=== PATIENT | female | born 1955 | race Caucasian/White ===

== ENCOUNTER 2021-02-06 06:31 | Day surgery (SDC) | payer BC, SELFPAY ==
[2021-01-30 14:53] VITALS: BMI 32.2
--- NOTE | 2021-02-05 13:17 | HO.ANESPROP2 ---
Documented by User: Lenore Davalos NP 02/05/21 13:21 HPI - Anesthesia Eval Consult details Narrative: 65yo F for Upper Endoscopy PMFSH Past Medical History Medical History Asthma COVID-19 vaccine series completed GERD (gastroesophageal reflux disease) Hepatitis B History of Love's esophagus Surgical History Surgical History H/O colonoscopy History of colposcopy History of esophagogastroduodenoscopy (EGD) Hx of breast surgery Social History Social History Are you a primary child care team lead to a significant other at home: No Do you presently have visiting nurse or other home services: No Patient Tobacco Use Status: Never used Tobacco Use of substances other than those prescribed or required for medical reasons: No Have you been hit, kicked, punched, or otherwise hurt by someone within the past year? If so, by whom?: No Are you DNR?: No Advance Directives: No Advance Directives Information Provided: Yes (informational brochure mailed) Advance Directives on File: No Recently lost weight without trying: No Nutrition Risks: No Nutritional Risk Poor oral hygiene: No (3 permanent bridges-back teeth) Meds Allergies Allergy/AdvReac Type Severity Reaction Status Date / Time No Known Allergies Allergy Verified 01/30/21 14:18 Home Medications Medication Instructions Recorded Confirmed Last Taken Type beclomethasone dipropionate 40 1 inh INHALATION BID 01/30/21 01/30/21 02/06/21 History mcg/actuation HFA breath activated aerosol (Qvar RediHaler) fexofenadine 180 mg tablet 180 mg PO DAILY 01/30/21 01/30/21 Unknown History (Tosin Allergy) Exam Exam Date and Time: February 05, 2021 1317 Height,Weight and Vital Signs: Height 5 ft Weight 74.843 kg Assessment and Plan Assessment Anesthesia Assessment: Chart Reviewed Documented by User: Karina Flores MD 02/06/21 07:35 FORMERLY [facility], [facility] Past Medical History Medical History Asthma COVID-19 vaccine series completed GERD (gastroesophageal reflux disease) Hepatitis B History of Love's esophagus Surgical History Surgical History H/O colonoscopy History of colposcopy History of esophagogastroduodenoscopy (EGD) Hx of breast surgery History of Problems with Anesthesia: No Social History Social History Are you a primary child care team lead to a significant other at home: No Do you presently have visiting nurse or other home services: No Patient Tobacco Use Status: Never used Tobacco Use of substances other than those prescribed or required for medical reasons: No Have you been hit, kicked, punched, or otherwise hurt by someone within the past year? If so, by whom?: No Are you DNR?: No Advance Directives: No Advance Directives Information Provided: Yes (informational brochure mailed) Advance Directives on File: No Recently lost weight without trying: No Nutrition Risks: No Nutritional Risk Poor oral hygiene: No (3 permanent bridges-back teeth) Meds Allergies Allergy/AdvReac Type Severity Reaction Status Date / Time No Known Allergies Allergy Verified 01/30/21 14:18 Home Medications Medication Instructions Recorded Confirmed Last Taken Type beclomethasone dipropionate 40 1 inh INHALATION BID 01/30/21 01/30/21 02/06/21 History mcg/actuation HFA breath activated aerosol (Qvar RediHaler) fexofenadine 180 mg tablet 180 mg PO DAILY 01/30/21 01/30/21 Unknown History (Tosin Allergy) Exam Airway Mallampati Class: III (Small mouth, crowded teeth) TM Dist: >3cm Neck ROM: Full Heart: RRR Lungs: CTA Assessment and Plan Assessment Anesthesia Assessment: Anesthesia Plan Discussed Final Anesthetic Review History of Problems with Anesthesia: No NPO: Yes ASA Class: II Final Preanesthetic Review: Meds/Allgs Chart Reviewed, Consent Obtained/Reviewed and Anes Risks/Benef Reviewed Patient Risk: Low Procedure Risk: Intermediate Anesthetic Plan Anesthetic Plan: MAC: Disposition: Standard PACU
[2021-02-06 06:56] VITALS: BP 128/50; PULSE 91; RESP 16; TEMP 36.7; O2SAT 95
[2021-02-06] MEDS: Lactated Ringers 1,000 ML 100 ML IVCONT (07:01)
[2021-02-06 08:04] VITALS: BP 119/52; PULSE 77; RESP 16; TEMP 36.1; O2SAT 95
--- NOTE | 2021-02-06 08:08 | P.BOP_ITS ---
Brief Operative Note Date of Service: 02/06/21 Pre-op diagnosis: GERD, Love's Post-op diagnosis: other (Hiatal hernia) Procedure: EGD with biopsies Surgeon: Lior Joseph Anesthesia: MAC Was an Sales Development Consultant used for this Procedure?: No Estimated blood loss (mL): 2.0 Pathology: other (A. EG Junction at 33cm) Condition: stable Disposition: PACU
[2021-02-06 08:19] VITALS: BP 112/52; PULSE 73; RESP 16; TEMP 36.1; O2SAT 94
[2021-02-06 08:31] VITALS: BP 126/57; PULSE 65; RESP 16; O2SAT 93
--- NOTE | 2021-02-06 09:57 | OP_ITS ---
SURGEON: Lior Joseph MD INDICATIONS: The patient presents for evaluation of gastroesophageal reflux and history of Love's esophagus. Full consent has been obtained from her for this, including risks of bleeding and perforation. PREOPERATIVE DIAGNOSIS: POSTOPERATIVE DIAGNOSIS: PROCEDURE PERFORMED: Esophagogastroduodenoscopy with biopsy. ESTIMATED BLOOD LOSS: COMPLICATIONS: ANESTHESIA: Monitored anesthesia care. ASSISTANTS: SPECIMENS: PREOPERATIVE DIAGNOSES: Gastroesophageal reflux and history of Love's esophagus. POSTOPERATIVE DIAGNOSES: Gastroesophageal reflux and history of Love's esophagus, hiatal hernia. DESCRIPTION OF PROCEDURE: The patient was placed in the left lateral decubitus position. The Olympus video gastroscope was passed in the posterior oropharynx and upper esophagus under direct vision. The scope was passed slowly into the distal esophagus. The gastroesophageal junction appeared at 33 cm. There was some very slight irregularity at this level, but without any sign of inflammation, ulceration, nor mass. The scope entered into the stomach. There was a small hiatal hernia. The scope was advanced to the pylorus and the duodenum was cannulated to the descending portion. The duodenum including the bulb appeared normal without mass or ulceration. Scope was withdrawn back in the stomach. The gastric antrum and body appeared normal with good peristalsis. The scope was retroflexed visualizing the proximal stomach carefully, which appeared normal, without any sign of mass or ulceration. The scope was straightened and withdrawn back into the esophagus. Biopsies were obtained at the EG junction. Proximal to this, the esophageal mucosa appeared normal. Scope was straightened out and withdrawn from the patient. She tolerated the procedure well and was returned to the recovery area in stable condition. IMPRESSION: Hiatal hernia, gastroesophageal reflux, history of Love's esophagus. PLAN: The results of the biopsy will be checked. I would recommend a repeat upper endoscopy in 3 years for further surveillance, at which time, she can have a followup colonoscopy given her negative exam in 2013 and a negative colonoscopy prior to that. She has no family history of colorectal cancer. At this point, she is asymptomatic in regard to her history of reflux and will therefore not require any chronic acid suppression. She will see me in the interim on a p.r.n. basis. MD ALIX Bui/MARY / [id number]
== END 2021-02-06 08:57 | disposition home or self-care (01) ==
PROVIDERS: PCP Family Medicine; Visit Provider Internal Medicine
PROC: 0DJ08ZZ Inspection of Upper Intestinal Tract, Via Natural or Artificial Opening Endoscopic (ICD-10-PCS; CPT 43235; principal; 2021-02-06 07:30)
DX: K22.70 Barrett's esophagus without dysplasia (principal); K21.9 Gastro-esophageal reflux disease without esophagitis; K44.9 Diaphragmatic hernia without obstruction or gangrene; J45.909 Unspecified asthma, uncomplicated; B19.10 Unspecified viral hepatitis B without hepatic coma; Z79.51 Long term (current) use of inhaled steroids
CPT/HCPCS: 43239; 88305; J3010

== ENCOUNTER → 2022-09-10 13:54 | Outpatient (REF) | payer MEDICARE, BC, SELFPAY ==
--- NOTE | 2022-09-10 14:03 | CA_ITS ---
Transthoracic Echocardiogram Patient (Last, First, Middle): Carla Stokes, Gender: Female Date of : 1955 Age: 67 Procedure Date: 09/10/2022 Procedure Type: Transthoracic Echocardiogram Location: [facility] Height: 152.4 cm Weight: 72.58 kg BSA: 1.70 m2 Heart Rate: 65 bpm BP: 128 / 62 mmHg Occ Med Physician: JEAN CLAUDE Referring MD: Fouzia Coley AGRICULTURE TECHNICIAN Certified Pharmacist Assistant: Bulmaro Dunbar MD Symptoms: CARDIAC MURMUR,UNSPECIFIED Study Quality: Adequate ECG Rhythm: Sinus Conclusions: - 1. Normal LV systolic function with LVEF of 60-65% with normal filling pattern 2. Bicuspid aortic valve with moderate thickening with moderate to severe aortic stenosis with mean gradient of 31 mmHg 3. Moderately dilated ascending aorta at 4.5 cm 4. Normal RV systolic pressure 5. No gross pericardial effusion Findings Left Ventricle Normal left ventricular size, thickness, and systolic function. The visually estimated ejection fraction is between 60-65%. Spectral Doppler is indicative of a normal filling pattern. Peak GLS is -18%, within normal limits. Right Ventricle Normal right ventricular cavity size and systolic function. Atria The left atrium is normal in size. Interatrial shunt cannot be excluded. The right atrium is normal in size. Aortic Valve There is a bicuspid aortic valve. There is moderate calcification of the aortic valve. There is moderate thickening of the aortic valve. There is moderately restricted aortic valve cusp separation. There is moderate to severe aortic valve stenosis. The mean gradient is 31 mmHg. The aortic valve area is 1.10 cm2. Dimensionless index is measured at 0.31, more suggestive of moderate aortic stenosis Mitral Valve Normal mitral valve structure and function. There is trace mitral valve regurgitation. There is no mitral valve stenosis. Pulmonic Valve The pulmonic valve is likely normal. Tricuspid Valve Normal tricuspid valve structure. There is trace tricuspid valve regurgitation. The right ventricular systolic pressure is normal. The right ventricular systolic pressure is 23 mmHg. Normal right atrial pressure. There is no evidence of pulmonary hypertension. Great Vessels The pulmonary artery was not well visualized. There is moderate dilatation of the ascending aorta measuring 4.50 cm. Venous The inferior vena cava is normal in size and collapses greater than 50% with inspiration. Pericardium/Pleural There is no evidence of pericardial effusion. Prior Study Comparison No prior study available for comparison. Measurements 2D Linear Measurements IVSd: 0.80 0.6-0.9/0.6-1.0 cm LVIDd: 4.80 3.9-5.3/4.2-5.9 cm LVIDd Index: 2.82 2.4-3.2/2.2-3.1 cm/m2 LVIDs: 3.01 2.0-3.6 cm LVPWd: 0.84 0.7-1.1 cm LA Diam: 3.40 2.7-3.8/3.0-4.0 cm LAIDs Index: 2.00 1.5-2.3 cm/m2 LV Mass: 163.15 67-162/88-224 g LV Mass Index: 95.97 43-95/49-115 g/m2 LVOT Diam: 2.00 3.0+(-)1.3 cm 2D Systolic Function EF 4C: 68.00 >55% EF 2C: 64.30 >55% EF BiP: 65.70 >55% Mitral Valve MV Pk E: 0.86 MV PK A: 0.78 MV Decel Time: 177.00 E/A: 1.10 E'Lateral: 5.66 E'Medial: 6.85 E/E' Med: 12.50 E/E' Lat: 15.10 PHT: 52.00 MVA PHT: 4.23 Decel Cross: 4.84 Aortic Valve AoV Pk Rafael: 3.58 AoV Mn Rafael: 2.65 AoV VTI: 0.86 AoV Pk Grad: 51.00 Aov Mn Grad: 31.00 ELIEZER Cont.VTI: 1.10 LVOT LVOT Pk Rafael: 0.94 LVOT Mn Rafael: 0.71 LVOT VTI: 0.24 LVOT Pk Grad: 3.00 LVOT Mn Grad: 3.00 LVOT Diam: 2.00 LVOT Area: 3.14 Diastolic Function MV Pk E: 0.86 MV Pk A: 0.78 E/A: 1.10 E'Medial: 6.85 E/E' Med: 12.50 E' Laterial: 5.66 E/E' Lat: 15.10 Right Ventricle TAPSE (mm): 21.20 TVS' Rafael: 10.40 Tricuspid Valve TR Pk Rafael: 2.24 TR Pk Grad: 20.00 RA Press: 3.00 RVSP: 23.00 Great Vessels Aorta Sinus of Valsalva: 3.00 2.0-3.5 cm Ao Asc: 4.50 2.1-3.4 cm Ao Arch: 3.50 Pulmonary Valve PV Pk Rafael: 0.94 Peak PV Grad: 4.00 Updated in Other Vendor System with Status of Final Bulmaro Dunbar MD electronically signed on 09/10/2022 3:50:37 PM with status of Final
== END ==
LOC: HO.CARD 13:54
PROVIDERS: PCP Nurse Practitioner Primary Care; Visit Provider Nurse Practitioner Primary Care
DX: R01.1 Cardiac murmur, unspecified (principal)
CPT/HCPCS: 93306; 93356

== ENCOUNTER 2024-09-16 19:44 | Inpatient (IN) | payer MEDICARE, BC, SELFPAY ==
--- NOTE | ~2024-09-16 | US_ITS ---
CLINICAL HISTORY: RUQ pain +manzanares --- Additional Notes or Special Instructions: gb ducts liver pancr eas US abdomen limited Comparison: None Findings: The visualized pancreas is normal. The liver is normal in size and echotexture. There is no intrahepatic bile duct dilatation. The common duct is 4 mm in diameter. The gallbladder contains a shadowing stone in the region of the gallbladder neck that does not appear to be mobile. Gallbladder wall measures 4 mm, mildly thickened. No pericholecystic fluid. City Letter Carrier reports that the patient is tender in the region of the gallbladder. The main portal vein is antegrade. No ascites. IMPRESSION: Cholelithiasis with findings concerning for acute cholecystitis. This document has been electronically signed by: Lelia Cavazos MD on 09/16/2024 21:00:06
[2024-09-16 19:47] VITALS: BP 144/50; PULSE 77; RESP 16; TEMP 36.4; O2SAT 99; BMI 26.3
--- NOTE | 2024-09-16 19:50 | ED_ITS ---
HPI - Abdominal Pain General Chief Complaint: Abdominal Pain Stated Complaint: abd pain vomiting Time Seen by Provider: 09/16/24 21:29 History of Present Illness ED Provider: Bora Fisher MD Related Data Home Medications ?Medication ?Instructions ?Recorded ?Confirmed calcium citrate 1 tab PO DAILY 09/16/24 09/16/24 fluticasone furoate 100 1 inh inhalation DAILY 09/16/24 09/16/24 mcg/actuation blister powder for inhalation (Arnuity Ellipta) vitamin D3 25 mcg (1,000 unit)-vit 1 tab PO DAILY 09/16/24 09/16/24 K2 90 mcg disintegrating tablet zinc 1 tab PO DAILY 09/16/24 09/16/24 Allergies Allergy/AdvReac Type Severity Reaction Status Date / Time No Known Allergies Allergy Verified 09/16/24 19:50 PMFSH Past Medical History Medical History (Updated 09/17/24 @ 10:31 by Monty Banda MD) Cholelithiasis Thoracic aortic aneurysm Valvular heart disease COVID-19 vaccine series completed Hepatitis B Asthma History of Love's esophagus GERD (gastroesophageal reflux disease) Surgical History (Updated 09/17/24 @ 07:45 by Juan Land MD) H/O lumpectomy History of colposcopy Hx of breast surgery H/O colonoscopy History of esophagogastroduodenoscopy (EGD) Social History Social History Household Members: Family Housing: House Are you a primary healthcare economics manager to a significant other at home: No Do you presently have visiting nurse or other home services: No Patient Tobacco Use Status: Never used Tobacco service: No Physical Exam ED Vital Signs: Vital Signs - 24 hr 09/16/24 19:47 09/16/24 21:26 Temperature 97.5 F 98.4 F Pulse Rate 77 59 Respiratory Rate 16 18 Blood Pressure 144/50 H 148/57 H Pulse Oximetry 99 97 Oxygen Delivery Method Room Air Room Air BMI result Body Mass Index 26.3 Course Course Course Narrative: 09/16/241949 HEATH Montero This is a Rapid Medical Examination (RME) performed by Jan Baxter PA-C in triage. Full HPI, ROS, assessment and treatment plan per primary provider in the Main ED. Hx: 69 yo F history of breast cancer, last chemo in June of 2024, here with RUQ abdominal pain that began suddenly around 1500 today after eating. Associated nausea and vomiting. No diarrhea. Last bowel movement today was normal. History gallbladder stones. No history of abdominal surgery. PE/vitals: Positive Colin's sign Plan: Labs, UA, ultrasound Medical Decision Making Medical Decision Making MDM Narrative: 69-year-old female undergoing cancer treatment last chemo several months ago with right upper quadrant abdominal pain after eating [employer]. Denies fever or chills she does know she has gallstones that previously where asymptomatic. Ultrasound reveals stone in the neck and thickened gallbladder wall with no pericholecystic fluid. I discussed the case with the surgeon initially patient preferred [facility] transfer however they are at capacity unable to take her at this time. Our surgeon is agreeable to manage this patient for now. Have given blood cultures and antibiotics although she does not meet sepsis criteria Consult Healthcare Provider Management of the patient was discussed with: Division Engineer (General surgeon Dr. Wang) Lab Data 09/17/24 06:33 09/17/24 06:33 Labs: Lab Results 09/16/24 09/16/24 Range/Units 20:03 21:30 WBC 10.5 (4.8-10.8) X10*3/uL RBC 3.36 L (4.20-5.50) X10*6/uL Hgb 11.5 L (12.0-16.0) g/dl Hct 34.3 L (37.0-47.0) % MCV 102.1 H (80.0-98.0) fL MCH 34.2 H (27.0-33.0) pg MCHC 33.5 (31.0-35.0) g/dl RDW 13.4 (11.0-16.0) % Plt Count 201 (160-400) X10*3/uL MPV 9.6 (9.4-12.3) fL Immature Gran % (Auto) 0.3 (0.0-0.4) % Neut % (Auto) 85.5 H (45-73) % Lymph % (Auto) 8.3 L (20-40) % [place] % (Auto) 5.1 (2-11) % Eos % (Auto) 0.5 (0-4) % Baso % (Auto) 0.3 (0-2) % Lymph # (Auto) 0.9 L (1.2-4.9) X10*3/uL [place] # (Auto) 0.5 (0.1-1.2) X10*3/uL Eos # (Auto) 0.1 (0.0-0.4) X10*3/uL Baso # (Auto) 0.0 (0.0-0.2) X10*3/uL Abs Immat Gran (auto) 0.03 (0.00-0.03) X10*3/uL Absolute Neuts (auto) 9.0 H (2.0-8.3) x10*3/uL Absolute Nucleated RBC 0.000 (0.0-0.012) X10*3/uL Nucleated RBC % (auto) 0.0 (0.0-0.2) /100WBC Sodium 139 (135-145) mmol/L Potassium 4.2 (3.3-5.1) mmol/L Chloride 102 (96-108) mmol/L Carbon Dioxide 28 (22-29) mmol/L Anion Gap 13 (12-20) BUN 15 (9-16) mg/dL Creatinine 0.93 (0.5-1.4) mg/dL Estim Creat Clear Calc 45.2 Estimated GFR 60 Random Glucose 165 H (60-115) mg/dL Calcium 9.7 (8.4-10.2) mg/dL Magnesium 1.7 (1.6-2.6) mg/dL Total Bilirubin 0.4 (0.0-1.0) mg/dL AST 17 (5-31) U/L ALT 7 (0-31) U/L Alkaline Phosphatase 84 (39-117) U/L Total Protein 6.9 (6.5-8.0) g/dL Albumin 3.9 (3.5-5.0) g/dL Lipase 9 (8-78) U/L Urine Color Yellow Urine Appearance Clear Urine pH 5.0 (5.0-9.0) Ur Specific [place] 1.025 (1.005-1.025) Urine Protein Trace (Neg-Trace) mg/dL Urine Glucose (UA) Negative (Negative) mg/dL Urine Ketones 15 (Negative) mg/dL Urine Blood Negative (Negative) Urine Nitrite Negative (Negative) Ur Leukocyte Esterase Moderate (2+) H (Negative) Urine RBC 0-2 (0-2) /HPF Urine WBC 6-10 H (0-5) /HPF Ur Squamous Epith Cells 0-2 (0-2) /HPF Urine Bacteria None Seen (None Seen) Hyaline Casts 0-2 (0-2) /LPF Independent Interpretation I performed an independent interpretation of an: Ultrasound Radiology Impression Discussion of test interpretation with radiology: I have reviewed the radiologist's reading. Medications Administered Discontinued Medications Generic Name Dose Route Start Last Admin Trade Name Rocio PRN Reason Stop Dose Admin Ceftriaxone Sodium 2 gm 09/16/24 21:30 09/16/24 22:56 Ceftriaxone Sodium 2 Gm Vial IVPUSH 09/16/24 21:31 2 gm ONCE ONE Administration Heparin Sodium (Porcine) 500 0 unit 09/18/24 11:35 09/18/24 11:42 unit/ Sodium Chloride 5 ml IVFLUSH 09/18/24 11:36 500 unit ONCE ONE Administration Lactated Ringer's 1,000 mls @ 100 mls/hr 09/16/24 22:15 09/18/24 10:57 Lr IVCONT 0 mls/hr .Q10H BURKE Infusion Piperacillin Sod/Tazobactam 50 mls @ 100 mls/hr 09/16/24 23:00 09/18/24 11:29 Sod 3.375 gm/ Sodium Chloride IV Infused Q6H BURKE Infusion Ibuprofen 600 mg 09/16/24 20:18 09/16/24 21:05 Ibuprofen 600 Mg Tablet PO 09/16/24 20:19 600 mg ONCE ONE Administration Ondansetron HCl 4 mg 09/16/24 20:18 09/16/24 21:05 Ondansetron Odt 4 Mg Tab.Rapdis TRANSLINGU 09/16/24 20:19 4 mg ONCE ONE Administration Sodium Chloride 3 ml 09/17/24 00:00 09/18/24 08:41 0.9 % Sodium Chloride Flush 3 Ml Syringe IVFLUSH Not Given QSHIFT COUNTS INCLUDE 234 BEDS AT THE [facility] Discharge Plan Discharge Clinical Impression: Acute cholecystitis Patient Disposition: Admitted As Inpatient Interventions: Admission Worksheet (ED) Last Done: 09/17/24 14:03 Discharge Date/Time: 09/17/24 15:43
[2024-09-16 20:09] LABS: MANUAL DIFF FLAG NO
[2024-09-16 20:10] LABS: Basophils Percent Auto 0.3 % (0-2); Eosinophils Absolute Auto 0.1 X10*3/uL (0.0-0.4); Eosinophils Percent Auto 0.5 % (0-4); Hematocrit 34.3 % (37.0-47.0); Hemoglobin 11.5 g/dl (12.0-16.0); Imm Gran Abs Auto 0.03 X10*3/uL (0.00-0.03); Imm Gran Pct Auto 0.3 % (0.0-0.4); Lymphocytes Absolute Auto 0.9 X10*3/uL (1.2-4.9); Lymphocytes Percent Auto 8.3 % (20-40); Mean Corpuscular HGB Conc 33.5 g/dl (31.0-35.0); Mean Corpuscular Hemoglobin 34.2 pg (27.0-33.0); Mean Corpuscular Volume 102.1 fL (80.0-98.0); Mean Platelet Volume 9.6 fL (9.4-12.3); Monocytes Absolute Auto 0.5 X10*3/uL (0.1-1.2); Monocytes Percent Auto 5.1 % (2-11); Neutrophils Percent Auto 85.5 % (45-73); Platelet Count 201 X10*3/uL (160-400); Red Blood Count 3.36 X10*6/uL (4.20-5.50); Red Cell Distribution Width 13.4 % (11.0-16.0); White Blood Count 10.5 X10*3/uL (4.8-10.8)
[2024-09-16 20:31] LABS: Alanine Aminotransferase 7 U/L (0-31); Albumin Level 3.9 g/dL (3.5-5.0); Alkaline Phosphatase 84 U/L (39-117); Anion Gap 13 (12-20); Aspartate Amino Transferase 17 U/L (5-31); Bilirubin Total 0.4 mg/dL (0.0-1.0); Blood Urea Nitrogen 15 mg/dL (9-16); Calcium 9.7 mg/dL (8.4-10.2); Carbon Dioxide 28 mmol/L (22-29); Chloride 102 mmol/L (96-108); Creatinine Clr Calc Pharmacy 45.2; Estimated Glomerular Filt Rate 60; Glucose Random 165 mg/dL (60-115); Lipase 9 U/L (8-78); Magnesium 1.7 mg/dL (1.6-2.6); Potassium 4.2 mmol/L (3.3-5.1); Sodium 139 mmol/L (135-145); Total Protein 6.9 g/dL (6.5-8.0)
[2024-09-16] MEDS: Ondansetron ODT 4 MG TAB.RAPDIS TRANSLINGU (21:05)
[2024-09-16] MEDS: Ibuprofen 600 MG TABLET PO (21:05)
[2024-09-16 21:26] VITALS: BP 148/57; PULSE 59; RESP 18; TEMP 36.9; O2SAT 97
--- NOTE | 2024-09-16 21:31 | MHC.EDTECH ---
This pct just assumed care of Patient ,vitals taken ,urine sample collected and sent to lab ,warm blanket given ,Patient daughter at bedside ,Call san within Pt reach .
[2024-09-16 21:38] LABS: Appearance Urine Clear; Color Urine Yellow; Glucose Urine UA Negative (Negative); Leukocyte Esterase Urine Moderate (2+) (Negative); Nitrite Urine Negative (Negative); Specific Gravity - Urine 1.025 (1.005-1.025); UMIC TRIGGER UACC YES; Urine Blood Negative (Negative); Urine Ketones 15 mg/dL (Negative); Urine Protein Trace mg/dL (Neg-Trace)
[2024-09-16 21:54] LABS: Bacteria Urine None Seen (None Seen); Hyaline Casts Urine 0-2 /LPF (0-2); RBC Urine 0-2 /HPF (0-2); Squamous Epithelial Cell Urine 0-2 /HPF (0-2); UACC Culture Trigger YES
--- NOTE | 2024-09-16 22:35 | PHA.MEDREC ---
Addendum entered by Stacy Gotti [facility] 09/16/24 22:43: REVIEWED BY PHARMACIST Original Note: Pharmacy Consult ? Medication Reconciliation Pharmacy has completed the medication reconciliation. Spoke with pt and she confirmed her medications. Pt confirmed she gets an Allergy Injection from her allergy Dr, but did not remember the name at this time and stated she got the shot today. Pt confirmed she takes a Calcium Citrate, Vitamin D3-K2, and Zinc tablets daily but did not remember then dose of the Calcium Citrate or Zinc tabs.
[2024-09-16] MEDS: Piperacillin Sodium/Tazobactam 3.375 GM in 0.9 % Sodium Chloride 50 ML IV (22:56)
[2024-09-16] MEDS: cefTRIAXone sodium 2 GM VIAL IVPUSH (22:56)
[2024-09-16] MEDS: Lactated Ringers 1,000 ML 100 ML IVCONT (22:59)
--- NOTE | 2024-09-16 23:12 | PC.NURSE ---
assumed care of pt. Accessed L chest port with no issues. Pt tolerated well, labs obtained. medicated per MAR
[2024-09-17] VITALS (8 sets, daily range): BP systolic 102–126; BP diastolic 38–61; PULSE 65–87; RESP 16–18; TEMP 36.5–37.8; O2SAT 94–98; BMI 22.2
--- NOTE | 2024-09-17 00:49 | MHC.EDTECH ---
midnight rounding and vitals done ,Patient up ambulated to bathroom with stand by asst ,void and ambulated back to bed , Patient belongings list done was sign and in Patient chart ,no apparent distress noted ,Plan of care continue .Call san within Pt reach .
--- NOTE | 2024-09-17 01:30 | P.CONHOSP_ITS ---
History of Present Illness Data of Consult Service Date: 09/17/24 Requesting physician: Juan Land Primary Care Provider: Unknown Physician HPI Reason for consult: medical management/preop clearance Patient is a 69-year-old female with a past medical history significant for aortic stenosis, mild persistent asthma, breast cancer currently receiving chemotherapy s/p lumpectomy and sentinel lymph node removal, and Love's esophagus, who presented to the ED and was found to have acute cholecystitis. The patient was admitted by Dr. Land with a hospitalist consult for medical management and preop clearance. The patient has no current complaints and states that her pain is well-controlled and she is not having any nausea or vomiting. She denies any chest pain, shortness of breath, headache. Her medical history and medications were reviewed. She denies any history of issues with anesthesia in the past. Review of Systems 2 Constitutional: Constitutional: Denies chills, Denies fatigue, Denies fever(s) and Denies headache(s) Eyes: Eyes: Denies change in vision and Denies photophobia ENT: Denies headache(s), Denies nasal congestion, Denies nasal discharge and Denies sore throat Cardiovascular: Cardiovascular: Denies chest pain, Denies rapid heart rate, Denies leg edema, Denies lightheadedness and Denies dyspnea Respiratory: Respiratory: Denies chest congestion, Denies cough, Denies dyspnea and Denies wheezing Gastrointestinal: Gastrointestinal: Reports as per HPI Genitourinary: Genitourinary: Denies difficulty voiding, Denies dysuria and Denies urinary urgency Musculoskeletal: Musculoskeletal: Denies back pain Integumentary/Breasts: Skin/Breast: Denies rash Neurologic: Denies confusion and Denies headache(s) Psychiatric: Psychiatric: Denies confusion Endocrine: Endocrine: Denies fatigue Hematologic/Lymphatic: Hematologic/Lymphatic: Denies easy bleeding and Denies easy bruising Allergic/Immunologic: Allergic/Immunologic: Denies wheezing [facility] Medical History (Updated 09/17/24 @ 10:31 by Monty Banda MD) Cholelithiasis Thoracic aortic aneurysm Valvular heart disease COVID-19 vaccine series completed Hepatitis B Asthma History of Love's esophagus GERD (gastroesophageal reflux disease) Functional capacity: independent ambulation Surgical History (Updated 09/17/24 @ 07:45 by Juan Land MD) H/O lumpectomy History of colposcopy Hx of breast surgery H/O colonoscopy History of esophagogastroduodenoscopy (EGD) Social History Household Members: Family Housing: House Are you a primary congregational care pastor to a significant other at home: No Do you presently have visiting nurse or other home services: No Patient Tobacco Use Status: Never used Tobacco service: No Narrative: No smoking, alcohol or drug use Meds Allergies Allergy/AdvReac Type Severity Reaction Status Date / Time No Known Allergies Allergy Verified 09/16/24 19:50 Active Medications: Current Medications Calcium Carbonate (Calcium Carbonate 750 Mg Tab.Chew) 750 mg PO Q4H PRN PRN Reason: Heartburn Hydromorphone HCl (Hydromorphone Hcl 0.5 Mg/0.5 Ml Syringe) 0.5 mg IVPUSH Q3H PRN; Protocol PRN Reason: Pain, Severe (Pain Scale 7-10) Lactated Ringer's (Lr) 1,000 mls @ 100 mls/hr IVCONT .Q10H [facility] Last Admin: 09/16/24 22:59 Dose: 100 mls/hr Acetaminophen (Ofirmev) 1,000 mg in 100 mls @ 400 mls/hr IV Q6H PRN PRN Reason: Pain, Mild (Pain Scale 1-3) Piperacillin Sod/Tazobactam (Sod 3.375 gm/ Sodium Chloride) 50 mls @ 100 mls/hr IV Q6H [facility] Last Infusion: 09/16/24 23:43 Dose: Infused Magnesium Hydroxide (Milk Of Magnesia 30 Ml Oral.Susp) 30 ml PO DAILY PRN PRN Reason: Constipation Melatonin (Melatonin 3 Mg Tablet) 6 mg PO BEDTIME PRN PRN Reason: Insomnia Ondansetron HCl (Ondansetron Hcl 4 Mg/2 Ml Vial) 4 mg IVPUSH QID PRN PRN Reason: Nausea Oxycodone HCl (Oxycodone Hcl Immed Release 5 Mg Tablet) 5 mg PO Q6H PRN PRN Reason: Pain, Moderate(Pain Scale 4-6) Sodium Chloride (0.9 % Sodium Chloride Flush 3 Ml Syringe) 3 ml IVFLUSH QSHIFT [facility] Last Admin: 09/17/24 00:12 Dose: Not Given Home Medications ?Medication ?Instructions ?Recorded ?Confirmed ?Last Taken ?Type calcium citrate 1 tab PO DAILY 09/16/24 09/16/24 09/16/24 History fluticasone furoate 100 1 inh inhalation DAILY 09/16/24 09/16/24 09/16/24 History mcg/actuation blister powder for inhalation (Arnuity Ellipta) vitamin D3 25 mcg (1,000 unit)-vit 1 tab PO DAILY 09/16/24 09/16/24 09/16/24 History K2 90 mcg disintegrating tablet zinc 1 tab PO DAILY 09/16/24 09/16/24 09/16/24 History Physical Exam 2 Vital Signs and Narrative: Vital Signs: Last Vital Signs Temp 97.7 F 09/17/24 00:35 Pulse 65 09/17/24 00:35 Resp 16 09/17/24 00:35 BP 111/45 L 09/17/24 00:35 Pulse Ox 94 09/17/24 00:35 O2 Del Method Room Air 09/17/24 00:35 BMI result Body Mass Index 26.3 General: AOx3, no acute distress Resp: CTA bilaterally CVS: S1, S2, RRR GI: +BS, NT, no distention Skin: Warm, dry Neuro: Cranial nerves II-XII grossly intact bilaterally. Motor grossly intact bilaterally Extremities: No LE edema Psych: Appropriate affect Const: General: No confusion Orientation/consciousness: No confusion Eyes: Direct Ophthalmoscopy: No photophobia Neuro: General: No confusion Results Labs 09/17/24 06:33 09/17/24 06:33 Labs: Laboratory Results - last 24 hr 09/16/24 09/16/24 20:03 21:30 MCV 102.1 H MCH 34.2 H MCHC 33.5 RDW 13.4 Plt Count 201 MPV 9.6 Immature Gran % (Auto) 0.3 Neut % (Auto) 85.5 H Lymph % (Auto) 8.3 L Bartholomew % (Auto) 5.1 Eos % (Auto) 0.5 Baso % (Auto) 0.3 Lymph # (Auto) 0.9 L Bartholomew # (Auto) 0.5 Eos # (Auto) 0.1 Baso # (Auto) 0.0 Abs Immat Gran (auto) 0.03 Absolute Neuts (auto) 9.0 H Absolute Nucleated RBC 0.000 Nucleated RBC % (auto) 0.0 Anion Gap 13 Estim Creat Clear Calc 45.2 Estimated GFR 60 Random Glucose 165 H Calcium 9.7 Magnesium 1.7 Total Bilirubin 0.4 AST 17 ALT 7 Alkaline Phosphatase 84 Total Protein 6.9 Albumin 3.9 Lipase 9 Urine Color Yellow Urine Appearance Clear Urine pH 5.0 Ur Specific [place] 1.025 Urine Protein Trace Urine Glucose (UA) Negative Urine Ketones 15 Urine Blood Negative Urine Nitrite Negative Ur Leukocyte Esterase Moderate (2+) H Urine RBC 0-2 Urine WBC 6-10 H Ur Squamous Epith Cells 0-2 Urine Bacteria None Seen Hyaline Casts 0-2 Assessment and Plan (1) Acute cholecystitis: Status: Acute (2) Preprocedural examination: Status: Acute Plan Patient is a 69-year-old female with a past medical history significant for aortic stenosis, mild persistent asthma, breast cancer currently receiving chemotherapy s/p lumpectomy and sentinel lymph node removal, and Love's esophagus, who presented to the ED and was found to have acute cholecystitis. Acute cholecystitis - pain and nausea well-controlled currently - plan per surgery - RCRI risk score 0 - due to aortic stenosis and last echo on file here from 2022, cardiology consult and echo ordered Mild persistent asthma, no acute exacerbation - continue home inhaler Breast cancer - followed by [facility] - completed chemotherapy in June Cardiology clearance needed due to history of moderate aortic stenosis on echocardiogram in 2022, may try obtaining recent echo from [facility]. Thank you for allowing me to participate in the pt's care. Signing off for now. Please contact the medical team if any questions or concerns.
--- NOTE | 2024-09-17 04:05 | MHC.EDTECH ---
0400 rounding done ,vitals taken ,Pt awake ambulate to bathroom ,and back to bed .
--- NOTE | 2024-09-17 05:00 | ECG_ITS ---
Test Reason : abd pain Blood Pressure : */* mmHG Vent. Rate : 67 BPM Atrial Rate : 67 BPM P-R Int : 190 ms QRS Dur : 90 ms QT Int : 402 ms P-R-T Axes : 43 -22 -8 degrees QTcB Int : 424 ms Normal sinus rhythm Moderate voltage criteria for LVH, may be normal variant ( R in aVL , [place] product ) Borderline ECG No previous ECGs available Referred By: Juan Land Electronically Signed By: LIAM HERNANDEZ
[2024-09-17] MEDS: Piperacillin Sodium/Tazobactam 3.375 GM in 0.9 % Sodium Chloride 50 ML IV ×4 (05:17→23:43)
[2024-09-17 07:05] LABS: MANUAL DIFF FLAG NO
[2024-09-17 07:14] LABS: Basophils Absolute Auto 0.1 X10*3/uL (0.0-0.2); Basophils Percent Auto 0.6 % (0-2); Eosinophils Absolute Auto 0.2 X10*3/uL (0.0-0.4); Eosinophils Percent Auto 2.4 % (0-4); Hematocrit 29.8 % (37.0-47.0); Hemoglobin 9.7 g/dl (12.0-16.0); Imm Gran Abs Auto 0.03 X10*3/uL (0.00-0.03); Imm Gran Pct Auto 0.4 % (0.0-0.4); Lymphocytes Absolute Auto 1.5 X10*3/uL (1.2-4.9); Lymphocytes Percent Auto 18.3 % (20-40); Mean Corpuscular HGB Conc 32.6 g/dl (31.0-35.0); Mean Corpuscular Hemoglobin 33.3 pg (27.0-33.0); Mean Corpuscular Volume 102.4 fL (80.0-98.0); Mean Platelet Volume 10.6 fL (9.4-12.3); Monocytes Absolute Auto 0.8 X10*3/uL (0.1-1.2); Monocytes Percent Auto 9.9 % (2-11); Neutrophils Absolute Auto 5.6 x10*3/uL (2.0-8.3); Neutrophils Percent Auto 68.4 % (45-73); Platelet Count 185 X10*3/uL (160-400); Red Blood Count 2.91 X10*6/uL (4.20-5.50); Red Cell Distribution Width 13.5 % (11.0-16.0); White Blood Count 8.2 X10*3/uL (4.8-10.8)
[2024-09-17 07:24] LABS: Anion Gap 11 (12-20); Blood Urea Nitrogen 12 mg/dL (9-16); Calcium 8.9 mg/dL (8.4-10.2); Carbon Dioxide 27 mmol/L (22-29); Chloride 107 mmol/L (96-108); Creatinine Clr Calc Pharmacy 50.7; Estimated Glomerular Filt Rate > 60; Glucose Random 97 mg/dL (60-115); Potassium 3.7 mmol/L (3.3-5.1); Sodium 141 mmol/L (135-145)
--- NOTE | 2024-09-17 07:38 | PM.HPGS ---
History of Present Illness History of Present Illness Date of Service: 09/17/24 Chief complaint: Acute cholecystitis, cholelithiasis Narrative: Carla Stokes is a 69 year old female admitted to the surgical service with evidence of acute cholecystitis due to cholelithiasis. She has a past medical history of aortic stenosis, mild persistent asthma, breast cancer and has previously undergone chemotherapy, lumpectomy with sentinel node biopsy in his awaiting an axillary node dissection at [facility]. Her last chemotherapy was in June 2024. She reports epigastric abdominal pain which began yesterday after eating a [employer] hamburger. The pain radiated to the right shoulder. She denies any previous history of similar symptoms. The pain was associated with nausea and vomiting. She denied fever or chills. She presented to the emergency department for further evaluation and was found to be tender in the right upper quadrant. Workup with ultrasound of the abdomen revealed gallstone in the neck of the gallbladder with a sonographic Colin sign. This morning the patient reports feeling much improved. With all her other medical issues impending surgery for the breast cancer, she is hoping to avoid surgery at this time. Her preference would be to have surgery at [facility] but she was then able to be transferred there due to a lack of beds. Patient was seen in consultation by the hospitalist service this morning. They have requested cardiology consultation and ordered a echocardiogram. The patient reports having an echocardiogram approximately 2 months ago at [facility]. Hospitalist have sign off the case without providing any clearance for surgery. Review of Systems Review of Systems: Yes all other systems are reviewed and are negative Constitutional: Constitutional: Denies chills, Denies fever(s) and Denies poor appetite Cardiovascular: Cardiovascular: Denies chest pain, Denies irregular heart rhythm and Denies dyspnea on exertion Respiratory: Respiratory: Denies excessive phlegm production and Denies dyspnea on exertion Gastrointestinal: Gastrointestinal: Reports as per HPI, Reports abdominal pain, Reports nausea, Reports vomiting and Denies hematemesis [facility] Past Medical History Medical History (Updated 09/17/24 @ 07:48 by Juan Land MD) Cholelithiasis Thoracic aortic aneurysm Valvular heart disease COVID-19 vaccine series completed Hepatitis B Asthma History of Love's esophagus GERD (gastroesophageal reflux disease) Surgical History Surgical History (Updated 09/17/24 @ 07:45 by Juan Land MD) H/O lumpectomy History of colposcopy Hx of breast surgery H/O colonoscopy History of esophagogastroduodenoscopy (EGD) Social History Social History Are you a primary caregivers non medical to a significant other at home: No Do you presently have visiting nurse or other home services: No Patient Tobacco Use Status: Never used Tobacco Smoked in Last 30 Days: No Use of substances other than those prescribed or required for medical reasons: No Advance Directives: No Advance Directives Information Provided: Yes Do you have a plan to hurt others: No Plan Nutrition Risks: No Nutritional Risk Meds Allergies Allergy/AdvReac Type Severity Reaction Status Date / Time No Known Allergies Allergy Verified 09/16/24 19:50 Active Medications: Current Medications Calcium Carbonate (Calcium Carbonate 750 Mg Tab.Chew) 750 mg PO Q4H PRN PRN Reason: Heartburn Hydromorphone HCl (Hydromorphone Hcl 0.5 Mg/0.5 Ml Syringe) 0.5 mg IVPUSH Q3H PRN; Protocol PRN Reason: Pain, Severe (Pain Scale 7-10) Lactated Ringer's (Lr) 1,000 mls @ 100 mls/hr IVCONT .Q10H [facility] Last Admin: 09/16/24 22:59 Dose: 100 mls/hr Acetaminophen (Ofirmev) 1,000 mg in 100 mls @ 400 mls/hr IV Q6H PRN PRN Reason: Pain, Mild (Pain Scale 1-3) Piperacillin Sod/Tazobactam (Sod 3.375 gm/ Sodium Chloride) 50 mls @ 100 mls/hr IV Q6H [facility] Last Infusion: 09/17/24 05:47 Dose: Infused Magnesium Hydroxide (Milk Of Magnesia 30 Ml Oral.Susp) 30 ml PO DAILY PRN PRN Reason: Constipation Melatonin (Melatonin 3 Mg Tablet) 6 mg PO BEDTIME PRN PRN Reason: Insomnia Ondansetron HCl (Ondansetron Hcl 4 Mg/2 Ml Vial) 4 mg IVPUSH QID PRN PRN Reason: Nausea Oxycodone HCl (Oxycodone Hcl Immed Release 5 Mg Tablet) 5 mg PO Q6H PRN PRN Reason: Pain, Moderate(Pain Scale 4-6) Sodium Chloride (0.9 % Sodium Chloride Flush 3 Ml Syringe) 3 ml IVFLUSH QSHIFT [facility] Last Admin: 09/17/24 00:12 Dose: Not Given Home Medications ?Medication ?Instructions ?Recorded ?Confirmed ?Last Taken ?Type calcium citrate 1 tab PO DAILY 09/16/24 09/16/24 09/16/24 History fluticasone furoate 100 1 inh inhalation DAILY 09/16/24 09/16/24 09/16/24 History mcg/actuation blister powder for inhalation (Arnuity Ellipta) vitamin D3 25 mcg (1,000 unit)-vit 1 tab PO DAILY 09/16/24 09/16/24 09/16/24 History K2 90 mcg disintegrating tablet zinc 1 tab PO DAILY 09/16/24 09/16/24 09/16/24 History Physical Exam Vital Signs: Vital Signs: Last Vital Signs Temp 98.5 F 09/17/24 06:41 Pulse 71 09/17/24 06:41 Resp 16 09/17/24 06:41 BP 102/38 L 09/17/24 06:41 Pulse Ox 96 09/17/24 06:41 O2 Del Method Room Air 09/17/24 06:41 BMI result Body Mass Index 26.3 Const: General: cooperative and no acute distress Nutritional Appearance: well nourished Orientation/consciousness: patient oriented x3 Limitations: no limitations HEENT: Head: Yes normocephalic and Yes atraumatic Ears: hearing grossly normal bilaterally Resp: Effort & Inspection: normal respiratory effort, no audible wheezes, no cough and no respiratory distress Cardio: Jugular venous distension: no JVD GI: Inspection: Yes normal to inspection and No distended Palpation (GI): Soft to palpation, nontender, no guarding, not rigid and No hepatosplenomegaly present Percussion: Yes normal to percussion Rectal Exam - Female: deferred Skin: Other: Warm, dry, no rash Neuro: General: patient oriented x3 Extrem: General: Yes no clubbing, cyanosis or edema Results Results Labs: Short CBC 09/16/24 09/17/24 Range/Units 20:03 06:33 WBC 10.5 8.2 (4.8-10.8) X10*3/uL Hgb 11.5 L 9.7 L (12.0-16.0) g/dl Hct 34.3 L 29.8 L (37.0-47.0) % Plt Count 201 185 (160-400) X10*3/uL BMP 09/16/24 09/17/24 20:03 06:33 Sodium 139 141 Potassium 4.2 3.7 Chloride 102 107 Carbon Dioxide 28 27 BUN 15 12 Creatinine 0.93 0.83 Calcium 9.7 8.9 D Liver Function 09/16/24 Range/Units 20:03 Total Bilirubin 0.4 (0.0-1.0) mg/dL AST 17 (5-31) U/L ALT 7 (0-31) U/L Alkaline Phosphatase 84 (39-117) U/L Albumin 3.9 (3.5-5.0) g/dL Urine 09/16/24 Range/Units 21:30 Urine Color Yellow Urine Appearance Clear Urine pH 5.0 (5.0-9.0) Ur Specific [place] 1.025 (1.005-1.025) Urine Protein Trace (Neg-Trace) mg/dL Urine Glucose (UA) Negative (Negative) mg/dL Assessment and Plan (1) Anemia associated with chemotherapy: Status: Acute (2) Acute cholecystitis: Status: Acute (3) Cholelithiasis: Qualifiers: Cholelithiasis location: gallbladder Cholecystitis presence: with cholecystitis Cholecystitis acuity: acute Biliary obstruction: without biliary obstruction Qualified Code(s): K80.00 - Calculus of gallbladder with acute cholecystitis without obstruction Status: Acute Plan 69-year-old female patient presenting with complaints of abdominal pain in the epigastrium found to have evidence of acute cholecystitis by ultrasound. Patient has multiple medical issues including aortic aneurysm and aortic stenosis. She is awaiting an axillary node dissection for breast cancer at [facility]. This morning she feels improved with no abdominal pain and would prefer to avoid surgical intervention possible. I reviewed the findings on ultrasound which show a large gallstone in the neck of the gallbladder. Hospitalist consultation appreciated. I have held the repeat echocardiogram given the recent echo performed in [facility]. We will attempt to get these results. I will attempt nonoperative management in start her on clear liquids this morning. If she tolerates this we will advance to a low-fat diet. She was encouraged to avoid any fatty/fried foods. She expressed understanding and agrees with the plan. She understands at if her symptoms return she may still require cholecystectomy. Quality Stroke Does the patient have a stroke diagnosis?: No VTE Prior VTE?: No VTE Risk Level:: Surgical - moderate VTE Device Contraindication: N/A - Device Ordered VTE Drug Contraindication: Treatment Not Indicated Procedures Date of Service Date of Service: 09/17/24
[2024-09-17] MEDS: Lactated Ringers 1,000 ML 100 ML IVCONT ×2 (08:50→19:11)
--- NOTE | 2024-09-17 10:22 | PM.CNCAR ---
History of Present Illness History of Present Illness Date of Service: 09/17/24 Chief complaint: Acute cholecystitis, cholelithiasis Narrative: This is a cardiology consultation regarding preoperative evaluation for cholecystitis. She has a history of aortic stenosis as well as ascending aortic aneurysm. Additionally, she is on chemotherapy for breast cancer and apparently has a lymph node dissection surgery coming up soon. Currently, admitted with a diagnosis of acute cholecystitis. We have been asked to see here from preoperative standpoint. She has got no overt complaints from cardiac at baseline but can feel her heart racing when she is doing a lot of physical activity. Review of Systems Review of Systems: Yes all other systems are reviewed and are negative Constitutional: Constitutional: Reports as per HPI and Reports no additional constitutional complaints Eyes: Eyes: Reports as per HPI and Denies no additional eye complaints ENT: Denies system reviewed and no additional complaints, except as documented and Reports as per HPI Cardiovascular: Cardiovascular: Reports as per HPI, Reports no additional cardiovascular complaints, Denies acrocyanosis, Denies cool extremities, Denies chest pain, Denies leg edema, Denies lightheadedness, Denies palpitations and Denies dyspnea Respiratory: Respiratory: Reports as per HPI, Denies no additional respiratory complaints and Denies dyspnea Gastrointestinal: Gastrointestinal: Reports as per HPI and Denies no additional gastrointestinal complaints Genitourinary: Genitourinary: Reports as per HPI Musculoskeletal: Musculoskeletal: Reports no additional musculoskeletal complaints and Reports as per HPI Integumentary/Breasts: Skin/Breast: Reports system reviewed and no additional complaints, except as docu Neurologic: Reports system reviewed and no additional complaints, except as documented and Reports as per HPI Psychiatric: Psychiatric: Reports no additional psychiatric complaints and Reports as per HPI Endocrine: Endocrine: Reports no additional endocrine complaints, Reports as per HPI and Denies palpitations Hematologic/Lymphatic: Hematologic/Lymphatic: Reports no additional hematologic/lymphatic complaints and Reports as per HPI Allergic/Immunologic: Allergic/Immunologic: Reports no additional allergic/immunologic complaints and Reports as per HPI [facility] Past Medical History Medical History (Updated 09/17/24 @ 10:31 by Monty Banda MD) Cholelithiasis Thoracic aortic aneurysm Valvular heart disease COVID-19 vaccine series completed Hepatitis B Asthma History of Love's esophagus GERD (gastroesophageal reflux disease) Family History Pertinent family history: No pertinent family history Surgical History Surgical History (Updated 09/17/24 @ 07:45 by Juan Land MD) H/O lumpectomy History of colposcopy Hx of breast surgery H/O colonoscopy History of esophagogastroduodenoscopy (EGD) Social History Social History Are you a primary career guidance technician to a significant other at home: No Do you presently have visiting nurse or other home services: No Patient Tobacco Use Status: Never used Tobacco Smoked in Last 30 Days: No Use of substances other than those prescribed or required for medical reasons: No Advance Directives: No Advance Directives Information Provided: Yes Do you have a plan to hurt others: No Plan Nutrition Risks: No Nutritional Risk Meds Allergies Allergy/AdvReac Type Severity Reaction Status Date / Time No Known Allergies Allergy Verified 09/16/24 19:50 Active Medications: Current Medications Calcium Carbonate (Calcium Carbonate 750 Mg Tab.Chew) 750 mg PO Q4H PRN PRN Reason: Heartburn Hydromorphone HCl (Hydromorphone Hcl 0.5 Mg/0.5 Ml Syringe) 0.5 mg IVPUSH Q3H PRN; Protocol PRN Reason: Pain, Severe (Pain Scale 7-10) Lactated Ringer's (Lr) 1,000 mls @ 100 mls/hr IVCONT .Q10H [facility] Last Admin: 09/17/24 08:50 Dose: 100 mls/hr Acetaminophen (Ofirmev) 1,000 mg in 100 mls @ 400 mls/hr IV Q6H PRN PRN Reason: Pain, Mild (Pain Scale 1-3) Piperacillin Sod/Tazobactam (Sod 3.375 gm/ Sodium Chloride) 50 mls @ 100 mls/hr IV Q6H [facility] Last Infusion: 09/17/24 05:47 Dose: Infused Magnesium Hydroxide (Milk Of Magnesia 30 Ml Oral.Susp) 30 ml PO DAILY PRN PRN Reason: Constipation Melatonin (Melatonin 3 Mg Tablet) 6 mg PO BEDTIME PRN PRN Reason: Insomnia Ondansetron HCl (Ondansetron Hcl 4 Mg/2 Ml Vial) 4 mg IVPUSH QID PRN PRN Reason: Nausea Oxycodone HCl (Oxycodone Hcl Immed Release 5 Mg Tablet) 5 mg PO Q6H PRN PRN Reason: Pain, Moderate(Pain Scale 4-6) Sodium Chloride (0.9 % Sodium Chloride Flush 3 Ml Syringe) 3 ml IVFLUSH QSHIFT [facility] Last Admin: 09/17/24 08:52 Dose: Not Given Home Medications ?Medication ?Instructions ?Recorded ?Confirmed ?Last Taken ?Type calcium citrate 1 tab PO DAILY 09/16/24 09/16/24 09/16/24 History fluticasone furoate 100 1 inh inhalation DAILY 09/16/24 09/16/24 09/16/24 History mcg/actuation blister powder for inhalation (Arnuity Ellipta) vitamin D3 25 mcg (1,000 unit)-vit 1 tab PO DAILY 09/16/24 09/16/24 09/16/24 History K2 90 mcg disintegrating tablet zinc 1 tab PO DAILY 09/16/24 09/16/24 09/16/24 History Physical Exam Vital Signs: Vital Signs: Last Vital Signs Temp 98.5 F 09/17/24 06:41 Pulse 71 09/17/24 06:41 Resp 16 09/17/24 06:41 BP 102/38 L 09/17/24 06:41 Pulse Ox 96 09/17/24 06:41 O2 Del Method Room Air 09/17/24 06:41 BMI result Body Mass Index 26.3 Const: General: comfortable and no acute distress Orientation/consciousness: patient oriented x3 HEENT: Other: Unremarkable Head: Yes normal to inspection Neck: Neck: Yes normal visual inspection Chest: Chest palpation & inspection: normal inspection of the chest Resp: Auscultation: clear to auscultation bilaterally Cardio: Palpation: normal PMI Heart sounds: S1 normal heart sound present, S2 normal heart sound present, no gallops, Murmur heart sound present systolic II/ and at the right sternal border and no rubs GI: Palpation (GI): Soft to palpation Back/Spine/Pelvis: Other: unremarkable Skin: General skin exam: no rashes or lesions noted Neuro: General: patient oriented x3 Extrem: General: Yes normal to inspection Psych: Mental Status: mental status grossly normal Objective Labs and Meds 09/17/24 06:33 09/17/24 06:33 Lab results: Laboratory Results - last 24 hr 09/16/24 09/16/24 09/17/24 20:03 21:30 06:33 WBC 10.5 8.2 RBC 3.36 L 2.91 L Hgb 11.5 L 9.7 L Hct 34.3 L 29.8 L MCV 102.1 H 102.4 H MCH 34.2 H 33.3 H MCHC 33.5 32.6 RDW 13.4 13.5 Plt Count 201 185 MPV 9.6 10.6 Immature Gran % (Auto) 0.3 0.4 Neut % (Auto) 85.5 H 68.4 Lymph % (Auto) 8.3 L 18.3 L [place] % (Auto) 5.1 9.9 Eos % (Auto) 0.5 2.4 Baso % (Auto) 0.3 0.6 Lymph # (Auto) 0.9 L 1.5 [place]win # (Auto) 0.5 0.8 Eos # (Auto) 0.1 0.2 Baso # (Auto) 0.0 0.1 Abs Immat Gran (auto) 0.03 0.03 Absolute Neuts (auto) 9.0 H 5.6 Absolute Nucleated RBC 0.000 0.000 Nucleated RBC % (auto) 0.0 0.0 Sodium 139 141 Potassium 4.2 3.7 Chloride 102 107 Carbon Dioxide 28 27 Anion Gap 13 11 L BUN 15 12 Creatinine 0.93 0.83 Estim Creat Clear Calc 45.2 50.7 Estimated GFR 60 > 60 Random Glucose 165 H 97 Calcium 9.7 8.9 D Magnesium 1.7 Total Bilirubin 0.4 AST 17 ALT 7 Alkaline Phosphatase 84 Total Protein 6.9 Albumin 3.9 Lipase 9 Urine Color Yellow Urine Appearance Clear Urine pH 5.0 Ur Specific [place] 1.025 Urine Protein Trace Urine Glucose (UA) Negative Urine Ketones 15 Urine Blood Negative Urine Nitrite Negative Ur Leukocyte Esterase Moderate (2+) H Urine RBC 0-2 Urine WBC 6-10 H Ur Squamous Epith Cells 0-2 Urine Bacteria None Seen Hyaline Casts 0-2 ECG Interpretation: EKG with underlying sinus rhythm at 67/Min; moderate criteria for LVH; normal DC and corrected QT. Assessment and Plan (1) Preoperative cardiovascular examination: Status: Acute (2) Acute cholecystitis: Status: Acute (3) Nonrheumatic aortic (valve) stenosis: Status: Acute (4) Thoracic aortic aneurysm: Status: Acute Plan Per echocardiogram at [place] last year, LVEF at 60-65%. Stated bicuspid aortic valve and thought to have [id number] stenosis with a valve area of 1.1 cm2 a mean gradient of 31 mm Hg. However, more so in the moderate range. In the more recent echocardiogram at [facility] which was sent to me as a [place] text message, LVEF was 55 to 60 %; severely thickened and calcified non coronary cusp with moderate aortic stenosis with a valve area of 1.08 cm2 and mean gradient 21 mmHg. No significant regurgitation. Ascending aorta not well visualized. Apical right ventricular wall is akinetic. Gradient was thought to be lower than before due to lower stroke volume. Discussed with the patient who stated that because all her care is coordinated through [facility], she would like to rather be at [facility] for any surgical interventions in the gallbladder. At the current time, she is on clears. If able to avoid surgery that will certainly be preferable and that will also be patient's 1st choice. If she indeed needs surgery, she would like to have it rather done at [facility]. Hence contacted [facility] and she has been accepted under hospitalist (Ana Rosa Pisano) for further care. However, there is a wait time of up to 2 days or so and patient may land waiting here for that time. In the interim, care per our surgeon. If indeed she actually needs surgery she will be at increased risk of cardiovascular complications mainly because of the aortic stenosis. However, as the aortic stenosis is not yet severe, risk is not prohibitive and if truly necessary to avoid complications from infected gallbladder, perforation, asbscess etc, may proceed. Also discussed with . Procedures Date of Service Date of Service: 09/17/24
--- NOTE | 2024-09-17 16:32 | MHC.CM.PN ---
PT REPORTS SHE LIVES WITH HER DAUGHTER, AND ANOTHER DAUGHTER AND HER LIVE UPSTAIRS IN THE TWO FAMILY HOME SHE HAS A WALKER FOR DME AND NO SERVICES COPY OF HCP REQUESTED PCP; [facility] DELIVERED DCP: HOME NO SERVICES VIA FAMILY TRANSPORT
[2024-09-18 03:55] VITALS: BP 105/48; PULSE 82; RESP 16; TEMP 37.3; O2SAT 94
[2024-09-18 05:00] VITALS: BP 111/50
[2024-09-18] MEDS: Piperacillin Sodium/Tazobactam 3.375 GM in 0.9 % Sodium Chloride 50 ML IV ×2 (05:01→10:55)
[2024-09-18] MEDS: Lactated Ringers 1,000 ML 100 ML IVCONT (05:01)
[2024-09-18 07:53] VITALS: BP 120/57; PULSE 86; RESP 16; TEMP 36.6; O2SAT 94
--- NOTE | 2024-09-18 10:20 | P.PNGS_ITS ---
Subjective Subjective Date of Service: 09/18/24 Interval history: Patient tolerated a small amount of dinner last night but was aware of her gallbladder. Denied significant pain, nausea or vomiting. Feels she may have been having the symptoms all along but attributed to her chemotherapy. Physical Exam 2 Vital Signs: Vital Signs: Last Vital Signs Temp 97.9 F 09/18/24 07:53 Pulse 86 09/18/24 07:53 Resp 16 09/18/24 07:53 BP 120/57 L 09/18/24 07:53 Pulse Ox 94 09/18/24 07:53 O2 Del Method Room Air 09/18/24 07:53 BMI result Body Mass Index 22.2 Const: General: cooperative and no acute distress Nutritional Appearance: w ell nourished Orientation/consciousness: patient oriented x3 Limitations: no limitations Resp: Effort & Inspection: normal respiratory effort, no audible wheezes, no cough and no respiratory distress GI: Inspection: Yes normal to inspection and No distended Palpation (GI): S oft to palpation, nontender, no guarding, not rigid and No hepatosplenomegaly present Percussion: Yes normal to percussion Rectal Exam - Female: d eferred Skin: Other: Warm, dry, no rash Neuro: General: patient oriented x3 Extrem: General: Yes no clubbing, cyanosis or edema Objective Data Active Medications Calcium Carbonate (Calcium Carbonate 750 Mg Tab.Chew) 750 mg PO Q4H PRN PRN Reason: Heartburn Hydromorphone HCl (Hydromorphone Hcl 0.5 Mg/0.5 Ml Syringe) 0.5 mg IVPUSH Q3H PRN; Protocol PRN Reason: Pain, Severe (Pain Scale 7-10) Lactated Ringer's (Lr) 1,000 mls @ 100 mls/hr IVCONT .Q10H [facility] Last Infusion: 09/18/24 05:35 Dose: 100 mls/hr Documented By: OMAR Acetaminophen (Ofirmev) 1,000 mg in 100 mls @ 400 mls/hr IV Q6H PRN PRN Reason: Pain, Mild (Pain Scale 1-3) Piperacillin Sod/Tazobactam (Sod 3.375 gm/ Sodium Chloride) 50 mls @ 100 mls/hr IV Q6H [facility] Last Infusion: 09/18/24 05:35 Dose: Infused Documented By: OMAR Magnesium Hydroxide (Milk Of Magnesia 30 Ml Oral.Susp) 30 ml PO DAILY PRN PRN Reason: Constipation Melatonin (Melatonin 3 Mg Tablet) 6 mg PO BEDTIME PRN PRN Reason: Insomnia Ondansetron HCl (Ondansetron Hcl 4 Mg/2 Ml Vial) 4 mg IVPUSH QID PRN PRN Reason: Nausea Oxycodone HCl (Oxycodone Hcl Immed Release 5 Mg Tablet) 5 mg PO Q6H PRN PRN Reason: Pain, Moderate(Pain Scale 4-6) Sodium Chloride (0.9 % Sodium Chloride Flush 3 Ml Syringe) 3 ml IVFLUSH QSHIFT [facility] Last Admin: 09/18/24 08:41 Dose: Not Given Documented By: DANIELLE Non-Admin Reason: IV Running Labs 09/17/24 06:33 09/17/24 06:33 Microbiology Microbiology Results: Microbiology 09/16/24 Unknown Urine Culture - Final Urine clean catch - Clean Catch Midstream 09/16/24 22:55 Blood Culture - Preliminary Blood - Venous No growth after 24 hours. 09/16/24 22:43 Blood Culture - Preliminary Blood - Venous No growth after 24 hours. Procedures Date of Service Date of Service: 09/18/24 Progress Note: A&P Assessment and plan (1) Valvular heart disease: Status: Acute (2) Acute cholecystitis: Status: Acute (3) Cholelithiasis: Status: Acute Plan 69-year-old female patient with breast cancer, aortic stenosis, awaiting axillary dissection now presenting with acute cholecystitis due to cholelithiasis. Overall the patient is improved but still has some mild symptoms in the right upper quadrant. Her examination is benign this morning and she will try breakfast and dinner. If this is tolerated without significant pain, nausea or vomiting, she will be discharged to home. She will follow-up with [facility] should her symptoms worsen. Time Spent With Patient Time: Total time managing care of this patient today ____ minutes. Quality Stroke Does the patient have a stroke diagnosis?: No VTE Prior VTE?: No VTE Risk Level:: Surgical - moderate VTE Device Contraindication: N/A - Device Ordered VTE Drug Contraindication: Treatment Not Indicated
--- NOTE | 2024-09-18 11:46 | MHC.CM.PN ---
PT WILL DC HOME TODAY WITH NO SERVICES VIA PRIVATE TRANSPORT
[2024-09-18 12:00] VITALS: BP 110/57; PULSE 84; RESP 16; TEMP 37; O2SAT 96
--- NOTE | 2024-09-22 20:40 | P.DS_ITS ---
DS: Providers Provider Date of Service: 09/18/24 Date of admission: 09/16/24 22:13 Date of discharge: 09/18/24 Primary care physician: Fouzia Coley NP Admitting clinician: Juan Land Consults: 09/16/24 22:18 Consult to Hospitalist Routine Comment: Consulting Provider: [facility] Hospitalists Reason For Exam: cholecystitis, aortic stenosis, preop evaluation 09/17/24 00:58 Consult to Cardiology Routine Consulting Provider: [facility] Reason for consultation: pre-op, Has provider been notified: No Discharging clinician: Juan Land DS: Diagnosis Discharge Diagnosis (1) Acute cholecystitis: Status: Acute (2) Nonrheumatic aortic (valve) stenosis: Status: Acute (3) Cholelithiasis: Status: Acute DS: Summary Hospital Course Hospital Course: Carla Stokes is a 69 year old female admitted to the surgical service with evidence of acute cholecystitis due to cholelithiasis. She has a past medical history of aortic stenosis, mild persistent asthma, breast cancer and has previously undergone chemotherapy, lumpectomy with sentinel node biopsy in his awaiting an axillary node dissection at [facility]. Her last chemotherapy was in June 2024. She reports epigastric abdominal pain which began yesterday after eating a [employer] hamburger. The pain radiated to the right shoulder. She denies any previous history of similar symptoms. The pain was associated with nausea and vomiting. She denied fever or chills. She presented to the emergency department for further evaluation and was found to be tender in the right upper quadrant. Workup with ultrasound of the abdomen revealed gallstone in the neck of the gallbladder with a sonographic Colin sign. This morning the patient reports feeling much improved. With all her other medical issues impending surgery for the breast cancer, she is hoping to avoid surgery at this time. Her preference would be to have surgery at [facility] but she was then able to be transferred there due to a lack of beds. Patient was seen in consultation by the hospitalist service this morning. They have requested cardiology consultation and ordered a echocardiogram. The patient reports having an echocardiogram approximately 2 months ago at [facility]. Hospitalist have sign off the case without providing any clearance for surgery. By the 2nd hospital day the patient was feeling improved and reported feeling hungry. She was started on clear liquids and quickly advanced to a regular diet which she tolerated well. She denied any abdominal pain, nausea or vomiting and felt comfortable enough to go home. I recommended that she stay on a low-fat diet. Should the symptoms return she should return to [facility] for further evaluation as surgical intervention would not be possible here due to her cardiac history. She expressed understanding and agrees with the plan. She will also follow up with the surgeon for axillary node dissection as previously scheduled. Status at Discharge Functional status at discharge: independent ambulation Overall status at discharge: patient is back to baseline Time Attestation Discharge Coordination Time (in mins): 25 Quality: Safe Use of Opioids Does Pt have an Active Cancer Diagnosis on the Problem List?: Yes Opioid Measure Date for [facility] Report: 08/23/24 Opioid Measure Time for [facility] Report: 20:44 Quality: Stroke Does the patient have a stroke diagnosis?: No Physical Exam Vital Signs: Vital Signs: Last Vital Signs Temp 98.6 F 09/18/24 12:00 Pulse 84 09/18/24 12:00 Resp 16 09/18/24 12:00 BP 110/57 L 09/18/24 12:00 Pulse Ox 96 09/18/24 12:00 O2 Del Method Room Air 09/18/24 12:00 BMI result Body Mass Index 22.2 Const: General: cooperative and no acute distress Nutritional Appearance: well nourished Orientation/consciousness: patient oriented x3 Limitations: no limitations Resp: Effort & Inspection: normal respiratory effort, no audible wheezes, no cough and no respiratory distress GI: Inspection: Yes normal to inspection and No distended Palpation (GI): Soft to palpation, nontender, no guarding, not rigid and No hepatosplenomegaly present Percussion: Yes normal to percussion Rectal Exam - Female: deferred Skin: Other: Warm, dry, no rash Neuro: General: patient oriented x3 Extrem: General: Yes no clubbing, cyanosis or edema Discharge Plan Discharge Anticipated Discharge Date/Time: 09/18/24 11:25 Patient Disposition: Home, Self-Care Discharge Diagnosis: Acute cholecystitis due to cholelithiasis Referrals: Physician,Unknown J [Physician] - 1 Week Discharge Medications: Continued vitamin D3-vitamin K2 25 mcg (1,000 unit)-90 mcg Tablet,Disintegrating 1 tab PO DAILY Arnuity Ellipta 100 mcg/actuation blister with device 1 inh INHALATION DAILY calcium citrate 1 tab PO DAILY zinc 1 tab PO DAILY Discharge Orders: Discharge Order (Routine); Ordered 09/18/24 Ordered By: Juan Land Diet: Low fat, low cholesterol Activity on Discharge: As tolerated Stand Alone Forms: Patient Portal Discharge page Print Language: [place] Care Plan Goals: Returned to normal activity and diet Health Concerns: Abdominal pain right upper quadrant with nausea and vomiting Plan of Treatment: Bowel rest Assessment: Cholelithiasis, biliary colic, cholecystitis Discharge Date/Time: 09/18/24 12:08
== END 2024-09-18 12:08 | disposition home or self-care (01) | DRG 446 ==
LOC: HO.ED 21:30 → HO.EDOVER 22:25 → HO.S3 09-17 13:57
PROVIDERS: Physician Assistant Medical; Admitting Provider Surgery; Emergency Provider Emergency Medicine; PCP Nurse Practitioner Primary Care; Visit Provider Surgery
DX: K80.00 Calculus of gallbladder with acute cholecystitis without obstruction (principal); J45.30 Mild persistent asthma, uncomplicated; I35.0 Nonrheumatic aortic (valve) stenosis; C50.919 Malignant neoplasm of unspecified site of unspecified female breast; I71.21 Aneurysm of the ascending aorta, without rupture; Z79.899 Other long term (current) drug therapy
CPT/HCPCS: 36415; 76705; 80048; 80053; 81001; 83690; 83735; 85025; 87040; 87086; 93005; 99285; J0696; J1642; J2543; J7120

== ENCOUNTER → 2024-09-16 19:49 | Outpatient (BNV) | payer MEDICARE, BC, SELFPAY | PROVIDERS: Emergency Provider Emergency Medicine; Visit Provider Radiology Diagnostic Radiology | DX: K80.00 Calculus of gallbladder with acute cholecystitis without obstruction (principal) | CPT/HCPCS: 76705 ==

== ENCOUNTER 2024-09-16 22:13 | Outpatient (BNV) | payer MEDICARE, BC, SELFPAY | END 2024-09-17 05:00 | PROVIDERS: Admitting Provider Surgery; Emergency Provider Emergency Medicine; Visit Provider Internal Medicine | DX: R10.9 Unspecified abdominal pain (principal) | CPT/HCPCS: 93010 ==

== ENCOUNTER → 2024-09-16 22:13 | Outpatient (BNV) | payer MEDICARE, BC, SELFPAY | PROVIDERS: Admitting Provider Surgery; Emergency Provider Emergency Medicine; Visit Provider Physician Assistant | DX: K81.0 Acute cholecystitis (principal); Z01.818 Encounter for other preprocedural examination | CPT/HCPCS: 99222 ==

== ENCOUNTER → 2024-09-16 22:13 | Outpatient (BNV) | payer MEDICARE, BC, SELFPAY | PROVIDERS: Admitting Provider Surgery; Emergency Provider Emergency Medicine; Visit Provider Surgery | DX: D64.81 Anemia due to antineoplastic chemotherapy (principal); T45.1X5A Adverse effect of antineoplastic and immunosuppressive drugs, initial encounter; K80.00 Calculus of gallbladder with acute cholecystitis without obstruction | CPT/HCPCS: 99222 ==

== ENCOUNTER → 2024-09-16 22:13 | Outpatient (BNV) | payer MEDICARE, BC, SELFPAY | PROVIDERS: Admitting Provider Surgery; Emergency Provider Emergency Medicine; Visit Provider Internal Medicine | DX: Z01.810 Encounter for preprocedural cardiovascular examination (principal); K81.0 Acute cholecystitis; I35.0 Nonrheumatic aortic (valve) stenosis; I71.20 Thoracic aortic aneurysm, without rupture, unspecified | CPT/HCPCS: 99233 ==